=== PATIENT | male | born 1980 | race Caucasian/White ===

== ENCOUNTER 2017-02-15 19:52 | Emergency (ER) | payer SELFPAY ==
--- NOTE | 2017-02-15 19:55 | NUR ---
INFORMED BY PARAMEDICS "WE BROUGHT THIAGO PATIENT BUT HE LEFT SOON WE GOT HERE"
== END 2017-02-15 19:55 | disposition left against medical advice (07) ==
LOC: EDBD → ER 19:53
DX: Z53.21 Procedure and treatment not carried out due to patient leaving prior to being seen by health care provider (principal)

== ENCOUNTER 2017-02-15 20:17 | Emergency (ER) | payer SELFPAY ==
[~2017-02-15] VITALS: Ht 144.8 cm; Wt 78.0 kg
[2017-02-15 21:04] LABS: BASOPHILS # (AUTO) 0.4 /CMM (0.0-0.2); BASOPHILS % (AUTO) 2.4 % (0.0-2.0); EOSINOPHILS % (AUTO) 0.3 % (0.0-6.0); HEMATOCRIT 46 % (39-51); HEMOGLOBIN 15.6 g/dL (13.5-17.5); LYMPHOCYTES # (AUTO) 1.9 /CMM (0.8-4.8); LYMPHOCYTES % (AUTO) 11.6 % (20.0-44.0); MEAN CORPUSCULAR HEMOGLOBIN 30 PG (26.0-33.0); MEAN CORPUSCULAR HGB CONC 34 g/dl (31.0-36.0); MEAN CORPUSCULAR VOLUME 89 fL (80-96); MONOCYTES # (AUTO) 0.8 /CMM (0.1-1.30); MONOCYTES % (AUTO) 4.9 % (2.0-12.0); NEUTROPHILS # (AUTO) 13.3 /CMM (1.8-8.9); NEUTROPHILS % (AUTO) 80.8 % (43.0-81.0); PLATELET COUNT (AUTO) 333 /CMM (150-450); RDW COEFFICIENT OF VARIATION 12.9 (11.5-15.0); RED BLOOD CELL COUNT(AUTO) 5.18 MIL/uL (4.5-6.0); WHITE BLOOD COUNT (AUTO) 16.4 K/uL (4.3-11.0)
[2017-02-15 21:07] LABS: CALCIUM, SERUM 9.4 mg/dL (8.5-10.1); CARBON DIOXIDE 26 mmol/L (21-32); CHLORIDE 102 mmol/L (98-107); CREATININE 1.2 mg/dL (0.6-1.3); GLUCOSE 133 mg/dL (74-106); POTASSIUM 3.8 mmol/L (3.5-5.1); SODIUM SERUM 136 mmol/L (136-145); UREA NITROGEN, BLOOD 14 mg/dL (7-18)
[2017-02-15 21:10] LABS: APPEARANCE,URINE Clear (CLEAR); BILIRUBIN,URINE Negative (NEGATIVE); BLOOD, URINE Moderate Ery/uL (NEGATIVE); COLOR,URINE Yellow (YELLOW); KETONES,URINE Negative (NEGATIVE); LEUKOCYTE ESTERASE ,URINE Negative (NEGATIVE); NITRITE, URINE Negative (NEGATIVE); PH,URINE 5.5 (5.0-8.0); PROTEIN,URINE 30 mg/dl (NEGATIVE); UGLUCOSE Negative (NEGATIVE); UROBILINOGEN,URINE 0.2 EU/dL (0.2)
[2017-02-15 21:13] LABS: ALANINE AMINOTRANSFERASE 23 U/L (12-78); ALBUMIN 4.7 g/dL (3.4-5.0); ALCOHOL, BLOOD < 3 mg/dL (0-0); ALKALINE PHOSPHATASE 92 U/L (46-116); ASPARTATE AMINOTRANSFERASE 20 U/L (15-37); BILIRUBIN,DIRECT 0.1 mg/dL (0.0-0.2); BILIRUBIN,TOTAL 0.8 mg/dL (0.2-1.0); TOTAL PROTEIN, SERUM 8.9 g/dL (6.4-8.2)
[2017-02-15 21:14] LABS: ACETAMINOPHEN 0 ug/ml (10-30)
[2017-02-15 21:24] LABS: BACTERIA,URINE Rare /HPF (None Seen); SQUAMOUS EPITHELIAL CELL,UR Rare /HPF (None Seen); WBC,URINE 2-3/HPF /HPF (0-3)
[2017-02-15 21:25] LABS: MUCUS,URINE Moderate /LPF (None Seen); URINE AMORPHOUS URATE Few /HPF (None Seen)
[2017-02-15] MEDS ORDERED: LORAZEPAM 1 MG TABLET ONE (21:42)
[2017-02-15] MEDS ORDERED: LORAZEPAM 1 MG TABLET PO ONE (22:00)
[2017-02-15] MEDS ORDERED: QUETIAPINE FUMARATE 100 MG TABLET PO ONE (22:00)
[2017-02-15] MEDS: QUETIAPINE FUMARATE 100 MG TABLET ONE ×2 (22:13→22:28)
--- NOTE | 2017-02-15 22:13 | NUR ---
PT REC'D 100 MG SEROQUEL PO. NURSING INTERMODAL CUSTOMER SERVICE TO BRING ADDITIONAL 100 MG. PT REFUSED THE 2ND 100 MG TAB. CARLYN JULIAN IS AWARE.
[2017-02-15] MEDS ORDERED: QUETIAPINE FUMARATE 100 MG TABLET ONE (22:18)
--- NOTE | 2017-02-15 23:06 | NUR ---
CALLED CLICKING MACHINE OPERATOR
--- NOTE | 2017-02-16 05:10 | NUR ---
PT OK TO DISCHARGE PER DR TURPIN. APatient is awake and alert to self, day, and place. Pt denies any suicidal ideation. PT ambulatory with a steady gait. Patient discharged to home in stable condition. Written and verbal after care instructions given. Patient verbalizes understanding of instruction.
[2017-02-16 05:11] VITALS: BP 142/75
== END 2017-02-16 05:14 | disposition home or self-care (01) ==
LOC: ER 20:22
DX: F15.10 Other stimulant abuse, uncomplicated (principal); F41.9 Anxiety disorder, unspecified; F32.9 Major depressive disorder, single episode, unspecified
CPT/HCPCS: 36415; 80048; 80076; 80305; 80329; 81001; 85025; 99284; A4606; G0480 ×2; Z7610; 81000-TC